=== PATIENT | male | born 1960 | race Caucasian/White ===

== ENCOUNTER 2023-08-27 17:53 | Emergency (ER) | payer MEDICAID ==
[~2023-08-27] VITALS: Ht 177.8 cm; Wt 113.0 kg
[2023-08-27 18:10] VITALS: O2SAT 97
[2023-08-27] MEDS ORDERED: IBUP-2029 MT (19:43)
[2023-08-27 20:25] VITALS: TEMP 97.9
[2023-08-27] MEDS: HYDROCODONE/ACETAMINOPHEN 5/325MG TABLET PO ONE (20:25)
[2023-08-27 20:35] VITALS: BP 145/82; PULSE 61; RESP 16
[2023-08-27] MEDS: KETOROLAC 30MG/ML VIAL IM ONE (20:35)
[2023-08-27] MEDS ORDERED: HYDR-4001 MT (20:47)
== END 2023-08-27 21:15 | disposition home or self-care (01) ==
LOC: ER 17:53
DX: S92.351A Displaced fracture of fifth metatarsal bone, right foot, initial encounter for closed fracture (principal); Z98.890 Other specified postprocedural states; Z88.8 Allergy status to other drugs, medicaments and biological substances; W18.39XA Other fall on same level, initial encounter; Y93.89 Activity, other specified; Y92.89 Other specified places as the place of occurrence of the external cause; Y99.8 Other external cause status
CPT/HCPCS: 82962; 73610; 73630; 29515; 99284; Z7610 ×2; J1885